=== PATIENT | female | born 1990 | race Caucasian/White ===

== ENCOUNTER → 2021-05-31 10:41 | Outpatient (CLI) | payer SELFPAY ==
[2021-05-24 14:32] VITALS: BMI 23.7
--- NOTE | 2021-05-31 10:46 | US_ITS ---
STUDY: ULTRASOUND OF THE FEMALE PELVIS - COMPLETE REASON FOR EXAM: Female, 31 years old. Endometriosis LMP: 05/12/2021. TECHNIQUE: Transabdominal and Transvaginal TECHNICAL QUALITY: Adequate. COMPARISON: None. FINDINGS: The uterus is anteverted and is in a midline position. The uterus measures 8.1 cm x 4.9 cm x 3.7 cm. There is a Nabothian cyst of the cervix. The endometrium measures 12.5 mm in thickness, and is heterogeneous (striated). There is a 1 cm x 0.8 cm x 0.7 cm fibroid in the cervix. Heterogeneous appearance of the uterus although no focal fibroid is seen. I.U.D. - The patient does not have an I.U.D. The right ovary is visualized. The right ovary measures 3.9 cm x 2 cm x 1.5 cm. There is no right ovarian cyst or ovarian mass. There is no visualized right adnexal mass or complex lesion. There is normal arterial and normal venous vascularity. The left ovary is visualized. The left ovary measures 3.7 cm x 3.8 cm x 1.8 cm. Small follicles are seen within the left ovary. There is no visualized left adnexal mass or complex lesion. There is normal arterial and normal venous vascularity. There is no fluid in the cul-de-sac. The pre void volume of the bladder was 702 ml. US/Pelvic (Non ) IMPRESSION: Fibroid change within the uterus although no focal fibroid is seen. Findings suggest a 1 cm x 0.8 cm x 0.7 cm fibroid in the cervix. Electronically Signed: Jb Barrera MD at 14:38 EDT , Service support ,
--- NOTE | 2021-05-31 10:46 | US_ITS ---
STUDY: ULTRASOUND OF THE FEMALE PELVIS - COMPLETE REASON FOR EXAM: Female, 31 years old. Endometriosis LMP: 05/12/2021. TECHNIQUE: Transabdominal and Transvaginal TECHNICAL QUALITY: Adequate. COMPARISON: None. FINDINGS: The uterus is anteverted and is in a midline position. The uterus measures 8.1 cm x 4.9 cm x 3.7 cm. There is a Nabothian cyst of the cervix. The endometrium measures 12.5 mm in thickness, and is heterogeneous (striated). There is a 1 cm x 0.8 cm x 0.7 cm fibroid in the cervix. Heterogeneous appearance of the uterus although no focal fibroid is seen. I.U.D. - The patient does not have an I.U.D. The right ovary is visualized. The right ovary measures 3.9 cm x 2 cm x 1.5 cm. There is no right ovarian cyst or ovarian mass. There is no visualized right adnexal mass or complex lesion. There is normal arterial and normal venous vascularity. The left ovary is visualized. The left ovary measures 3.7 cm x 3.8 cm x 1.8 cm. Small follicles are seen within the left ovary. There is no visualized left adnexal mass or complex lesion. There is normal arterial and normal venous vascularity. There is no fluid in the cul-de-sac. The pre void volume of the bladder was 702 ml. US/Transvaginal Non- IMPRESSION: Fibroid change within the uterus although no focal fibroid is seen. Findings suggest a 1 cm x 0.8 cm x 0.7 cm fibroid in the cervix. Electronically Signed: Jb Barrera MD at 14:38 EDT , Service support ,
== END ==
PROVIDERS: PCP Physician Assistant; Referring Provider Obstetrics & Gynecology; Visit Provider Obstetrics & Gynecology
DX: N80.9 Endometriosis, unspecified (principal); E11.9 Type 2 diabetes mellitus without complications; I10 Essential (primary) hypertension; D68.59 Other primary thrombophilia; Z79.899 Other long term (current) drug therapy
CPT/HCPCS: 36415; 76830; 76856; 81291

== ENCOUNTER 2021-07-04 11:55 | Outpatient (CLI) | payer SELFPAY ==
[2021-07-04 09:29] VITALS: BMI 23.7
== END 2021-07-04 13:00 | disposition home or self-care (01) ==
LOC: WPOUT 11:58 → WP 11:59
PROVIDERS: PCP Physician Assistant; Referring Provider Obstetrics & Gynecology; Visit Provider Obstetrics & Gynecology
DX: Z39.1 Encounter for care and examination of lactating mother (principal)
CPT/HCPCS: 96158